=== PATIENT | female | born 1940 | race African-American/Black ===

== ENCOUNTER 2017-10-29 12:45 | Emergency (ER) | payer OTHER, MEDICAID ==
[~2017-10-29] VITALS: Ht 160 cm; Wt 113.4 kg
[2017-10-29 12:54] VITALS: Ht 160 cm; Wt 113.4 kg
[2017-10-29 13:25] LABS: BASOPHIL % 1.2 % (0-2); PLATELET COUNT 264 x10^3mcL (130-400)
[2017-10-29 13:36] LABS: CALCIUM 9.5 mg/dL (8.5-10.1); CHLORIDE SERUM 99 mmol/L (98-107); CREATININE SERUM 1.2 mg/dL (0.6-1.0); GLUCOSE SERUM 107 mg/dL (74-106); POTASSIUM SERUM 3.8 mmol/L (3.5-5.1); SODIUM SERUM 136 mmol/L (136-145)
[2017-10-29 13:40] LABS: ALBUMIN 3.5 g/dL (3.4-5.0); ALKALINE PHOSPHATASE 97 U/L (46-116); ALT/SGPT 18 U/L (14-59); AST/SGOT 15 U/L (15-37); BILIRUBIN TOTAL 0.4 mg/dL (0.20-1.00); TOTAL PROTEIN, SERUM 7.8 g/dL (6.4-8.2)
[2017-10-29 13:47] LABS: RED CELL DISTRIBUTION WIDTH 14.8 % (11.5-14.5)
[2017-10-29 15:02] VITALS: BP 138/74
== END 2017-10-29 15:14 | disposition home or self-care (01) ==
LOC: ED 12:45
PROVIDERS: Emergency Medicine
DX: L30.4 Erythema intertrigo (principal); N28.9 Disorder of kidney and ureter, unspecified; I10 Essential (primary) hypertension
CPT/HCPCS: 36415